=== PATIENT | male | born 1960 | race Caucasian/White ===

== ENCOUNTER 2017-12-12 10:54 | Emergency (ER) | payer MEDICARE ==
[~2017-12-12] VITALS: Ht 172.7 cm; Wt 69.5 kg
[~2017-12-12 10:54] MED LIST: ARIP10TA33; CITA10TA8 PO; CITA20TA9 PO; DIVA-61 PO; DIVA125T2 PO; TRAZ-136 PO; TRAZ300T2 PO
[2017-12-12 10:57] VITALS: BP 126/74
== END 2017-12-12 11:43 | disposition home or self-care (01) ==
LOC: ED 11:30
DX: H10.12 Acute atopic conjunctivitis, left eye (principal)
CPT/HCPCS: 99282

== ENCOUNTER 2018-09-26 12:35 | Emergency (ER) | payer MEDICARE ==
[~2018-09-26] VITALS: Ht 172.7 cm; Wt 71.2 kg
[~2018-09-26 12:35] MED LIST changes: -TRAZ-136 PO; +TRAZ50TA66 PO
[2018-09-26 12:47] VITALS: BP 121/74
--- NOTE | 2018-09-26 13:09 | NUR ---
LUNCH RN: PT PRESENTING TO ER FOR DEPRESSION AND SI, ATTEMPTS IN THE PAST BUT JUST WANTS SOME HELP. STATES HE WAS THINKING OF HANGING HIMSELF OR [place]. PT CURRENTLY CALM AND COOPERATIVE WITH STAFF REQUESTS. ROOM LOCKED DOWN AND SECURED, PT UNDRESSED COMPLETELY, GIVEN GOWN AND SOCKS. 1 BAG AND 1 ROLLING BAG OF BELONGINGS LABELED AND PLACED IN LOCKER. PT INFORMED OF NEEDED URINE SAMPLE, WATER GIVEN PER REQUEST. SITTER IN [place] FOR CONTINUOUS MONITORING.
[2018-09-26 13:31] LABS: BASOPHILS # (AUTO) 0.07 x10^3/uL (0-0.1); BASOPHILS % (AUTO) 1 % (0-1); EOSINOPHILS # (AUTO) 0.06 x10^3/uL (0-0.4); EOSINOPHILS % (AUTO) 1 % (1-7); LYMPHOCYTES # (AUTO) 1.99 x10^3/uL (1-3.4); LYMPHOCYTES % (AUTO) 30 % (22-44); MD NO; MEAN CORPUSCULAR HEMOGLOBIN 33.2 pg (27.5-34.5); MEAN CORPUSCULAR HGB CONC 33.9 g/dL (33.2-36.2); MEAN CORPUSCULAR VOLUME 97.7 fL (81-97); MEAN PLATELET VOLUME 7.8 fL (7.4-10.4); MONOCYTES # (AUTO) 0.42 x10^3/uL (0.2-0.8); MONOCYTES % (AUTO) 6 % (2-9); NEUTROPHILS # (AUTO) 4.14 x10^3/uL (1.8-6.8); NEUTROPHILS % (AUTO) 62 % (42-75); PLATELET COUNT 203 x10^3/uL (130-400); RED BLOOD COUNT 4.81 x10^6/uL (4.38-5.82)
[2018-09-26 13:44] LABS: ALANINE AMINOTRANSFERASE 19 U/L (12-78); ANION GAP 9 mmol/L (5-15); CALCIUM 9.5 mg/dL (8.5-10.1); CHLORIDE 105 mmol/L (98-107); CREATININE 0.92 mg/dL (0.7-1.3)
[2018-09-26 13:46] LABS: ALKALINE PHOSPHATASE 73 U/L (45-117); BILIRUBIN,TOTAL 1.3 mg/dL (0.2-1.0); TOTAL PROTEIN 7.7 g/dL (6.4-8.2)
[2018-09-26 13:49] LABS: ACETAMINOPHEN < 2 mcg/mL (10-30); SALICYLATE LEVEL < 1.7 mg/dL (2.8-20.0)
--- NOTE | 2018-09-26 14:44 | NUR ---
UA walked to lab, pt in bed, nad, no needs at this time, in suicide secured room, sitter at doorway in full view of pt. wctm
--- NOTE | 2018-09-26 14:54 | NUR ---
pt resting on gurney. provided with crackers and juice.
[2018-09-26 15:05] LABS: AMPHETAMINE SCREEN, URINE Negative (Negative); BARBITURATE SCREEN, URINE Negative (Negative); BENZODIAZEPINE SCREEN, URINE Negative (Negative); CANNABINOID SCREEN, URINE Negative (Negative); COCAINE SCREEN, URINE Positive (Negative); METHADONE SCREEN, URINE Negative (Negative); OPIATE SCREEN, URINE Negative (Negative)
--- NOTE | 2018-09-26 15:44 | NUR ---
pt resting on gurney. pt is calm and cooperative and states he is still having depressed feelings and reports low self esteem in himself. he is looking forward to being treated for his depression and SI and is hoping for a referral to a program that will help him create positive coping mechanisms.
[2018-09-26] MEDS ORDERED: TRAZ50TA66 PO (15:49)
--- NOTE | 2018-09-26 16:51 | NUR ---
REPORT GIVEN TO MANA GARLAND
[2018-09-26] MEDS ORDERED: BISACODYL 10 MG SUPP PR PRN (17:30)
[2018-09-26] MEDS ORDERED: DOCUSATE 100 MG CAPSULE PO PRN (17:30)
[2018-09-26] MEDS ORDERED: ACETAMINOPHEN 325 MG TABLET PO PRN (17:30)
[2018-09-26] MEDS ORDERED: POLYETHYLENE GLYCOL 17 GM PACKET PO PRN (18:00)
[2018-09-26] MEDS ORDERED: TRAZ-137 PO (20:04)
[2018-09-27] MEDS ORDERED: NICOTINE 14MG/24 HR PATCH.TD24 TD ONE (16:30)
[2018-09-27] MEDS ORDERED: LORazepam 1MG TABLET PO PRN (16:30)
[2018-09-28] MEDS ORDERED: THIAMINE 100MG TABLET PO SCH (09:00)
[2018-09-28] MEDS ORDERED: FOLIC ACID 1 MG TABLET PO SCH (09:00)
== END 2018-09-26 17:49 ==
LOC: ED 13:44
DX: F33.9 Major depressive disorder, recurrent, unspecified (principal); Z72.9 Problem related to lifestyle, unspecified; F14.10 Cocaine abuse, uncomplicated
CPT/HCPCS: 36415; 80053; 80307; 85025; 99285

== ENCOUNTER 2018-09-26 16:42 | Inpatient (IN) | payer MEDICARE ==
[~2018-09-26] VITALS: Ht 172.7 cm; Wt 72.8 kg
[2018-09-26] MEDS ORDERED: ACETAMINOPHEN 325 MG TABLET PO PRN (17:00)
[2018-09-26] MEDS ORDERED: DOCUSATE 100 MG CAPSULE PO PRN (17:00)
[2018-09-26] MEDS ORDERED: POLYETHYLENE GLYCOL 17 GM PACKET PO PRN (17:00)
[2018-09-26] MEDS ORDERED: BISACODYL 10 MG SUPP PR PRN (17:00)
[2018-09-26 18:33] VITALS: BP 132/81
[2018-09-26 19:03] LABS: BASOPHILS # (AUTO) 0.04 x10^3/uL (0-0.1); BASOPHILS % (AUTO) 1 % (0-1); EOSINOPHILS # (AUTO) 0.15 x10^3/uL (0-0.4); EOSINOPHILS % (AUTO) 2 % (1-7); LYMPHOCYTES # (AUTO) 2.92 x10^3/uL (1-3.4); LYMPHOCYTES % (AUTO) 41 % (22-44); MD NO; MEAN CORPUSCULAR HEMOGLOBIN 33.3 pg (27.5-34.5); MEAN CORPUSCULAR HGB CONC 33.3 g/dL (33.2-36.2); MEAN CORPUSCULAR VOLUME 99.9 fL (81-97); MEAN PLATELET VOLUME 8.1 fL (7.4-10.4); MONOCYTES # (AUTO) 0.48 x10^3/uL (0.2-0.8); MONOCYTES % (AUTO) 7 % (2-9); NEUTROPHILS # (AUTO) 3.51 x10^3/uL (1.8-6.8); NEUTROPHILS % (AUTO) 49 % (42-75); PLATELET COUNT 212 x10^3/uL (130-400); RED BLOOD COUNT 4.95 x10^6/uL (4.38-5.82); RED CELL DISTRIBUTION WIDTH 13.1 % (9.4-14.8)
[2018-09-26 19:12] LABS: ALBUMIN 3.9 g/dL (3.4-5.0); ANION GAP 6 mmol/L (5-15); CALCIUM 9.3 mg/dL (8.5-10.1); CHLORIDE 104 mmol/L (98-107)
[2018-09-26 19:27] VITALS: BP 132/86
[2018-09-26 19:40] LABS: ALANINE AMINOTRANSFERASE 19 U/L (12-78); ALKALINE PHOSPHATASE 72 U/L (45-117); BILIRUBIN,TOTAL 1.2 mg/dL (0.2-1.0); CHOL/HDL RATIO 2.1; CHOLESTEROL, TOTAL 145 mg/dL (140-239); CREATININE 0.89 mg/dL (0.7-1.3); HDL CHOL % 48 % (26-37); HDL CHOLESTEROL (DIRECT) 70 mg/dL (40-60); LDL CHOLESTEROL,CALCULATED 64 mg/dL (54-169); LDL/HDL RATIO 0.9 (0.5-3.0); T4 (THYROXINE) 6.6 mcg/dL (4.5-12.1); TOTAL PROTEIN 7.7 g/dL (6.4-8.2); TRIGLYCERIDES 53 mg/dL (50-200); VLDL CHOLESTEROL 11 mg/dL (0-25)
[2018-09-26 19:44] LABS: HCT (SEDRATE) 49.5 % (39.2-51.8)
[2018-09-26] MEDS ORDERED: TRAZ-137 PO (20:04)
[2018-09-26] MEDS: TRAZODONE 100MG TABLET PO SCH (20:32)
[2018-09-27 07:09] VITALS: BP 119/72
[2018-09-27] MEDS ORDERED: POLYETHYLENE GLYCOL 17 GM PACKET PO PRN (08:00)
[2018-09-27] MEDS ORDERED: ONDANSETRON ODT 4 MG PO PRN (08:00)
[2018-09-27] MEDS ORDERED: BISACODYL 10 MG SUPP PR PRN (08:00)
[2018-09-27] MEDS ORDERED: DOCUSATE 100 MG CAPSULE PO PRN (08:00)
[2018-09-27] MEDS: ACETAMINOPHEN 325 MG TABLET PO PRN (09:42)
[2018-09-27] MEDS ORDERED: NICOTINE 14MG/24 HR PATCH.TD24 TD ONE (17:00)
[2018-09-27 17:38] LABS: MICROSCOPIC NOT IND
[2018-09-27 18:12] LABS: CULTURE INDICATED? NO
[2018-09-27 19:49] VITALS: BP 114/72
[2018-09-27] MEDS: OLANZAPINE 5 MG TABLET PO SCH (20:56)
[2018-09-27] MEDS: TRAZODONE 100MG TABLET PO SCH (21:00)
[2018-09-27] MEDS: DIVALPROEX 500 MG TABLET.DR PO SCH (22:19)
[2018-09-28 07:31] VITALS: BP 117/71
[2018-09-28] MEDS ORDERED: NAPROXEN 500 MG TABLET ONE (08:24)
[2018-09-28] MEDS: FOLIC ACID 1 MG TABLET PO SCH (08:25)
[2018-09-28] MEDS: THIAMINE 100MG TABLET PO SCH (08:25)
[2018-09-28] MEDS: LORazepam 1MG TABLET PO PRN (08:26)
[2018-09-28] MEDS: NAPROXEN 500 MG TABLET PO PRN (08:29)
[2018-09-28 20:00] VITALS: BP 110/67
[2018-09-28] MEDS: OLANZAPINE 5 MG TABLET PO SCH (20:23)
[2018-09-28] MEDS: DIVALPROEX 500 MG TABLET.DR PO SCH (20:23)
[2018-09-28] MEDS: TRAZODONE 100MG TABLET PO SCH (20:23)
[2018-09-29 07:48] VITALS: BP 115/71
[2018-09-29] MEDS: NAPROXEN 500 MG TABLET PO PRN (08:28)
[2018-09-29] MEDS: THIAMINE 100MG TABLET PO SCH (08:28)
[2018-09-29] MEDS: LORazepam 1MG TABLET PO PRN (08:28)
[2018-09-29] MEDS: FOLIC ACID 1 MG TABLET PO SCH (08:28)
[2018-09-29 19:59] VITALS: BP 145/81
[2018-09-29] MEDS: OLANZAPINE 5 MG TABLET PO SCH (20:16)
[2018-09-29] MEDS: DIVALPROEX 500 MG TABLET.DR PO SCH (20:16)
[2018-09-29] MEDS: TRAZODONE 100MG TABLET PO SCH (20:16)
[2018-09-30 07:44] VITALS: BP 106/72
[2018-09-30] MEDS: THIAMINE 100MG TABLET PO SCH (08:42)
[2018-09-30] MEDS: FOLIC ACID 1 MG TABLET PO SCH (08:42)
[2018-09-30] MEDS: LORazepam 1MG TABLET PO PRN (13:22)
[2018-09-30 20:00] VITALS: BP 109/74
[2018-09-30] MEDS: DIVALPROEX 500 MG TABLET.DR PO SCH (20:30)
[2018-09-30] MEDS: TRAZODONE 100MG TABLET PO SCH (20:30)
[2018-09-30] MEDS: OLANZAPINE 5 MG TABLET PO SCH (20:31)
[2018-10-01 07:19] VITALS: BP 113/70
[2018-10-01] MEDS: FOLIC ACID 1 MG TABLET PO SCH (08:41)
[2018-10-01] MEDS: THIAMINE 100MG TABLET PO SCH (08:41)
[2018-10-01] MEDS: NAPROXEN 500 MG TABLET PO PRN (14:03)
[2018-10-01 19:30] VITALS: BP 120/72
[2018-10-01] MEDS: TRAZODONE 100MG TABLET PO SCH (20:20)
[2018-10-01] MEDS: OLANZAPINE 5 MG TABLET PO SCH (20:20)
[2018-10-01] MEDS: DIVALPROEX 500 MG TABLET.DR PO SCH (20:20)
[2018-10-02] MEDS: ACETAMINOPHEN 325 MG TABLET PO PRN (06:27)
[2018-10-02 07:25] VITALS: BP 106/69
[2018-10-02] MEDS: THIAMINE 100MG TABLET PO SCH (08:24)
[2018-10-02] MEDS: FOLIC ACID 1 MG TABLET PO SCH (08:24)
[2018-10-02 19:36] VITALS: BP 123/73
[2018-10-02] MEDS: TRAZODONE 100MG TABLET PO SCH (20:46)
[2018-10-02] MEDS: DIVALPROEX 500 MG TABLET.DR PO SCH (20:46)
[2018-10-02] MEDS: OLANZAPINE 5 MG TABLET PO SCH (20:46)
[2018-10-03 07:16] VITALS: BP 100/67
[2018-10-03] MEDS: THIAMINE 100MG TABLET PO SCH (08:41)
[2018-10-03] MEDS: LORazepam 1MG TABLET PO PRN (08:41)
[2018-10-03] MEDS: FOLIC ACID 1 MG TABLET PO SCH (08:41)
[2018-10-03 17:00] VITALS: BP 109/70
[2018-10-03 19:52] VITALS: BP 109/70
[2018-10-03] MEDS: OLANZAPINE 5 MG TABLET PO SCH (20:27)
[2018-10-03] MEDS: TRAZODONE 100MG TABLET PO SCH (20:27)
[2018-10-03] MEDS: DIVALPROEX 500 MG TABLET.DR PO SCH (20:27)
[2018-10-04 07:27] VITALS: BP 109/64
[2018-10-04] MEDS: THIAMINE 100MG TABLET PO SCH (08:46)
[2018-10-04] MEDS: FOLIC ACID 1 MG TABLET PO SCH (08:46)
[2018-10-04 15:46] VITALS: BP 106/70
[2018-10-04] MEDS: NAPROXEN 500 MG TABLET PO PRN (15:47)
[2018-10-04 19:46] VITALS: BP 107/68
[2018-10-04] MEDS: TRAZODONE 100MG TABLET PO SCH (20:53)
[2018-10-04] MEDS: DIVALPROEX 500 MG TABLET.DR PO SCH (20:53)
[2018-10-04] MEDS: OLANZAPINE 5 MG TABLET PO SCH (20:54)
[2018-10-05 07:31] VITALS: BP 98/63
[2018-10-05] MEDS: THIAMINE 100MG TABLET PO SCH (08:31)
[2018-10-05] MEDS: FOLIC ACID 1 MG TABLET PO SCH (08:31)
[2018-10-05 17:15] VITALS: BP 125/51
[2018-10-05 19:44] VITALS: BP 111/73
[2018-10-05] MEDS: OLANZAPINE 5 MG TABLET PO SCH (20:11)
[2018-10-05] MEDS: TRAZODONE 100MG TABLET PO SCH (20:11)
[2018-10-05] MEDS: DIVALPROEX 500 MG TABLET.DR PO SCH (20:11)
[2018-10-06 07:11] VITALS: BP 106/71
[2018-10-06] MEDS: THIAMINE 100MG TABLET PO SCH (09:04)
[2018-10-06] MEDS: FOLIC ACID 1 MG TABLET PO SCH (09:04)
[2018-10-06] MEDS ORDERED: LORazepam 0.5MG TABLET PO PRN (17:30)
[2018-10-06 19:51] VITALS: BP 104/73
[2018-10-06] MEDS: OLANZAPINE 5 MG TABLET PO SCH (20:18)
[2018-10-06] MEDS: DIVALPROEX 500 MG TABLET.DR PO SCH (20:18)
[2018-10-06] MEDS: TRAZODONE 100MG TABLET PO SCH (20:18)
[2018-10-07 06:56] VITALS: BP 106/71
[2018-10-07] MEDS: FOLIC ACID 1 MG TABLET PO SCH (10:05)
[2018-10-07] MEDS: THIAMINE 100MG TABLET PO SCH (10:05)
[2018-10-07] MEDS: NAPROXEN 500 MG TABLET PO PRN (15:54)
[2018-10-07 19:55] VITALS: BP 107/71
[2018-10-07] MEDS: OLANZAPINE 5 MG TABLET PO SCH (20:21)
[2018-10-07] MEDS: TRAZODONE 100MG TABLET PO SCH (20:21)
[2018-10-07] MEDS: DIVALPROEX 500 MG TABLET.DR PO SCH (20:21)
[2018-10-08 07:28] VITALS: BP 97/59
[2018-10-08] MEDS: THIAMINE 100MG TABLET PO SCH (08:03)
[2018-10-08] MEDS: FOLIC ACID 1 MG TABLET PO SCH (08:03)
[2018-10-08 19:53] VITALS: BP 113/75
[2018-10-08] MEDS: DIVALPROEX 500 MG TABLET.DR PO SCH (20:46)
[2018-10-08] MEDS: OLANZAPINE 5 MG TABLET PO SCH (20:46)
[2018-10-08] MEDS: TRAZODONE 100MG TABLET PO SCH (20:46)
[2018-10-09 07:21] VITALS: BP 102/61
[2018-10-09] MEDS: THIAMINE 100MG TABLET PO SCH (08:24)
[2018-10-09] MEDS: FOLIC ACID 1 MG TABLET PO SCH (08:24)
[2018-10-09] MEDS: NAPROXEN 500 MG TABLET PO PRN (11:32)
[2018-10-09 19:50] VITALS: BP 119/80
[2018-10-09] MEDS: OLANZAPINE 5 MG TABLET PO SCH (20:11)
[2018-10-09] MEDS: TRAZODONE 100MG TABLET PO SCH (20:11)
[2018-10-09] MEDS: DIVALPROEX 500 MG TABLET.DR PO SCH (20:11)
[2018-10-10 07:19] VITALS: BP 112/78
[2018-10-10] MEDS: FOLIC ACID 1 MG TABLET PO SCH (08:35)
[2018-10-10] MEDS: THIAMINE 100MG TABLET PO SCH (08:35)
[2018-10-10 19:55] VITALS: BP 125/78
[2018-10-10] MEDS: DIVALPROEX 500 MG TABLET.DR PO SCH (20:48)
[2018-10-10] MEDS: OLANZAPINE 5 MG TABLET PO SCH (20:49)
[2018-10-10] MEDS: TRAZODONE 100MG TABLET PO SCH (20:49)
[2018-10-11 07:27] VITALS: BP 107/67
[2018-10-11] MEDS: FOLIC ACID 1 MG TABLET PO SCH (08:28)
[2018-10-11] MEDS: THIAMINE 100MG TABLET PO SCH (08:28)
[2018-10-11 20:00] VITALS: BP 122/84
[2018-10-11] MEDS: TRAZODONE 100MG TABLET PO SCH (20:42)
[2018-10-11] MEDS: OLANZAPINE 5 MG TABLET PO SCH (20:43)
[2018-10-11] MEDS: DIVALPROEX 500 MG TABLET.DR PO SCH (20:43)
[2018-10-12 07:23] VITALS: BP 126/82
[2018-10-12] MEDS: FOLIC ACID 1 MG TABLET PO SCH (07:59)
[2018-10-12] MEDS: THIAMINE 100MG TABLET PO SCH (07:59)
== END 2018-10-12 08:30 | disposition home or self-care (01) | DRG 885 ==
LOC: 3E 17:52
PROVIDERS: ADMIT Psychiatry & Neurology Psychosomatic Medicine; ATTEND Psychiatry & Neurology Psychosomatic Medicine
DX: F31.30 Bipolar disorder, current episode depressed, mild or moderate severity, unspecified (principal); R45.851 Suicidal ideations; F17.200 Nicotine dependence, unspecified, uncomplicated; F41.9 Anxiety disorder, unspecified; G89.29 Other chronic pain; M54.9 Dorsalgia, unspecified; F10.10 Alcohol abuse, uncomplicated; Z81.8 Family history of other mental and behavioral disorders; Z80.1 Family history of malignant neoplasm of trachea, bronchus and lung; Z91.14 Patient's other noncompliance with medication regimen
CPT/HCPCS: 36415; 80053; 80061; 81003; 82140; 82607; 84436; 84443; 85025; 85651; 86592; 93005; Q0177

== ENCOUNTER 2018-11-06 09:43 | Emergency (ER) | payer MEDICARE ==
[~2018-11-06] VITALS: Ht 172.7 cm; Wt 75.5 kg
[~2018-11-06 09:43] MED LIST changes: +TRAZ-137 PO
[2018-11-06 09:45] VITALS: BP 130/75
[2018-11-06 10:06] LABS: BASOPHILS # (AUTO) 0.04 x10^3/uL (0-0.1); BASOPHILS % (AUTO) 1 % (0-1); EOSINOPHILS # (AUTO) 0.11 x10^3/uL (0-0.4); EOSINOPHILS % (AUTO) 2 % (1-7); LYMPHOCYTES # (AUTO) 1.91 x10^3/uL (1-3.4); LYMPHOCYTES % (AUTO) 40 % (22-44); MD NO; MEAN CORPUSCULAR HEMOGLOBIN 33.6 pg (27.5-34.5); MEAN CORPUSCULAR HGB CONC 33.8 g/dL (33.2-36.2); MEAN CORPUSCULAR VOLUME 99.6 fL (81-97); MEAN PLATELET VOLUME 7.8 fL (7.4-10.4); MONOCYTES # (AUTO) 0.37 x10^3/uL (0.2-0.8); MONOCYTES % (AUTO) 8 % (2-9); NEUTROPHILS # (AUTO) 2.39 x10^3/uL (1.8-6.8); NEUTROPHILS % (AUTO) 50 % (42-75); PLATELET COUNT 201 x10^3/uL (130-400); RED BLOOD COUNT 4.77 x10^6/uL (4.38-5.82); RED CELL DISTRIBUTION WIDTH 13.9 % (9.4-14.8)
[2018-11-06 10:17] LABS: ALBUMIN 4.5 g/dL (3.4-5.0); ANION GAP 5 mmol/L (5-15); CHLORIDE 106 mmol/L (98-107); SALICYLATE LEVEL 2.5 mg/dL (2.8-20.0)
--- NOTE | 2018-11-06 10:38 | NUR ---
LATE NOTE ENTRY FOR 0945: Pt presents to ED with c/o SI with plan to jump [place] bridge [place] free[place] traffic. Pt has history of SI. Pt resting on gurney with even chest rise and fall. Sitter near doorway in direct line of sight for observation. Room secured for SI/HI. Personal belongings removed and placed in one belonging bag that is locked in ED locker for safe keeping. No other needs expressed. Warm blanket provided for comfort measures.
--- NOTE | 2018-11-06 10:40 | NUR ---
Pt ambulates with steady gait and balance to restroom with sitter. Pt returned to ED room.
--- NOTE | 2018-11-06 11:01 | NUR ---
Provided report to MANA Gerardo. All questions answered. MANA Gerardo to assume care of pt.
--- NOTE | 2018-11-06 11:04 | NUR ---
REPORT RECEIVED FROM GUILHERME ADAIR. CARE TRANSFERRED AT THIS TIME.
[2018-11-06 11:12] LABS: AMPHETAMINE SCREEN, URINE Negative (Negative); BARBITURATE SCREEN, URINE Negative (Negative); BENZODIAZEPINE SCREEN, URINE Negative (Negative); CANNABINOID SCREEN, URINE Negative (Negative); COCAINE SCREEN, URINE Negative (Negative); METHADONE SCREEN, URINE Negative (Negative); OPIATE SCREEN, URINE Negative (Negative)
[2018-11-06] MEDS ORDERED: PROZAC (11:44)
[2018-11-06] MEDS ORDERED: ZYPREXA (11:44)
[2018-11-06] MEDS ORDERED: DEPAKOTE (11:44)
[2018-11-06] MEDS ORDERED: ZOLOFT (11:44)
[2018-11-06] MEDS ORDERED: LORazepam 1MG TABLET ONE (12:10)
--- NOTE | 2018-11-06 12:12 | NUR ---
PT GIVEN MEAL TRAY, EATING IN ROOM. PT BECOMING MORE ANXIOUS AND IRRITABLE WHEN ASKED QUESTIONS ABOUT MEDS. PT REQUESTING ATIVAN TO CALM DOWN. NOTIFIED, PT MEDICATED PER JUN. SITTER IN [place] FOR CONTINUOUS MONITORING. WILL CONTINUE TO MONITOR
[2018-11-06] MEDS ORDERED: LORazepam 1MG TABLET PO ONE (12:30)
--- NOTE | 2018-11-06 13:00 | NUR ---
PT ASLEEP IN [facility], MIGUELTER IN [facility] FOR CONTINUOUS MONITORING, [place]EL[place].
--- NOTE | 2018-11-06 13:20 | NUR ---
PACKET FAXED TO [facility], [facility], [facility]
--- NOTE | 2018-11-06 14:19 | NUR ---
PT RESTING IN [facility], NAD, SITTER IN [facility] FOR CONTINUOUS MONITORING.
--- NOTE | 2018-11-06 14:55 | NUR ---
REPORT GIVEN TO JIL AT [facility].
--- NOTE | 2018-11-06 15:14 | NUR ---
THIS RN NOTIFIED, PT WILL LEAVE ER VIA [facility] TO [facility]. PT RESTING IN [place].
--- NOTE | 2018-11-06 16:11 | NUR ---
PT AMBULATORY TO RESTROOM WITH STEADY GAIT. SITTER HAS LINE OF SIGHT TO PT FOR CONTINUOUS MONITORING.
--- NOTE | 2018-11-06 16:25 | NUR ---
PT LEFT WITH [facility]. REPORT GIVEN TO BOTH [facility] AND [facility]. ALL BELONGINGS AND DISCHARGE PAPERWORK GIVEN TO [facility]. PT AMBULATED TO AMBULANCE WITH STEADY GAIT AND [facility] STAFF, PT CALM AND COOPERATIVE.
== END 2018-11-06 16:29 ==
LOC: ED 12:46
DX: F33.2 Major depressive disorder, recurrent severe without psychotic features (principal); J45.909 Unspecified asthma, uncomplicated
CPT/HCPCS: 36415; 80048; 80307; 82040; 85025; 99285

== ENCOUNTER 2018-12-12 08:51 | Emergency (ER) | payer MEDICARE, OTHER ==
[~2018-12-12] VITALS: Ht 172.7 cm; Wt 71.0 kg
[2018-12-12 11:16] VITALS: BP 115/75
== END 2018-12-12 13:01 | disposition home or self-care (01) ==
LOC: ED 11:35
DX: S73.102A Unspecified sprain of left hip, initial encounter (principal); Y04.8XXA Assault by other bodily force, initial encounter; Y93.89 Activity, other specified; Y92.410 Unspecified street and highway as the place of occurrence of the external cause; Y99.8 Other external cause status
CPT/HCPCS: 36415; 71046; 72192; 73502; 73552; 80053; 81003; 84484; 85025; 93005; 96372; 99284; J1885

== ENCOUNTER 2019-05-17 12:07 | Emergency (ER) | payer MEDICARE ==
[~2019-05-17] VITALS: Ht 172.7 cm; Wt 71.8 kg
[~2019-05-17 12:07] MED LIST changes: +DEPAKOTE; +PROZAC; +ZOLOFT; +ZYPREXA
--- NOTE | 2019-05-17 12:18 | NUR ---
PHP ENGINEER: PT SITTING IN CHAIR NEAR NURSES STATION FOR MONITORING. TO BE ROOMED SHORTLY.
--- NOTE | 2019-05-17 12:48 | NUR ---
PT TO ROOM 3, ROOM SECURED.
[2019-05-17 12:59] LABS: BASOPHILS # (AUTO) 0.02 x10^3/uL (0-0.1); BASOPHILS % (AUTO) 0 % (0-1); EOSINOPHILS # (AUTO) 0.02 x10^3/uL (0-0.4); EOSINOPHILS % (AUTO) 0 % (1-7); LYMPHOCYTES # (AUTO) 1.65 x10^3/uL (1-3.4); LYMPHOCYTES % (AUTO) 36 % (22-44); MD NO; MEAN CORPUSCULAR HEMOGLOBIN 34.5 pg (27.5-34.5); MEAN CORPUSCULAR HGB CONC 34.6 g/dL (33.2-36.2); MEAN CORPUSCULAR VOLUME 99.8 fL (81-97); MEAN PLATELET VOLUME 7.6 fL (7.4-10.4); MONOCYTES # (AUTO) 0.43 x10^3/uL (0.2-0.8); MONOCYTES % (AUTO) 9 % (2-9); NEUTROPHILS # (AUTO) 2.47 x10^3/uL (1.8-6.8); NEUTROPHILS % (AUTO) 54 % (42-75); PLATELET COUNT 174 x10^3/uL (130-400); RED BLOOD COUNT 5.05 x10^6/uL (4.38-5.82); RED CELL DISTRIBUTION WIDTH 14.5 % (9.4-14.8)
[2019-05-17 13:11] LABS: ALBUMIN 4.2 g/dL (3.4-5.0); ANION GAP 5 mmol/L (5-15); CALCIUM 9.2 mg/dL (8.5-10.1); CHLORIDE 105 mmol/L (98-107)
[2019-05-17 13:14] LABS: ALANINE AMINOTRANSFERASE 568 U/L (12-78); ALKALINE PHOSPHATASE 131 U/L (45-117); BILIRUBIN,TOTAL 2.5 mg/dL (0.2-1.0); CREATININE 0.82 mg/dL (0.7-1.3); TOTAL PROTEIN 8.6 g/dL (6.4-8.2)
--- NOTE | 2019-05-17 13:15 | NUR ---
PT BELONGINGS PLACED IN TWO BELONGING BAGS AND INTO LOCKER. URINE COLLECTED/SENT TO LAB. SITTER AT DOORWAY FOR CLOSE OBS. PT UPDATED ON POC. PT VERBALIZES UNDERSTANDING, HAS BEEN HERE FOR SAME ONE YEAR AGO AND REMEMBERS POLICY. PT R/O ANXIETY ATTACKS WITHIN PAST THREE MONTHS, DEPRESSION AND STATES HE'S BEEN ISOLATING HIMSELF MORE. PT STATES HE STOPPED TAKING BIPOLAR AND DEPRESSION MEDS FOUR MONTHS AGO. CALL LIGHT WITHIN REACH TO ALLOW PT TO WATCH TV. PT COOPERATIVE WITH CARE. MEAL TRAY ORDERED.
[2019-05-17 13:18] LABS: SALICYLATE LEVEL < 1.7 mg/dL (2.8-20.0)
--- NOTE | 2019-05-17 13:45 | NUR ---
PT UPDATED ON ADD ON HEP PANEL LAB AND US. COMMUNITY NUTRITION EDUCATOR TO SEE.
[2019-05-17 13:51] LABS: MICROSCOPIC NOT IND
[2019-05-17 13:56] LABS: CULTURE INDICATED? NO
[2019-05-17 14:05] LABS: AMPHETAMINE SCREEN, URINE Negative (Negative); BARBITURATE SCREEN, URINE Negative (Negative); BENZODIAZEPINE SCREEN, URINE Negative (Negative); CANNABINOID SCREEN, URINE Negative (Negative); COCAINE SCREEN, URINE Negative (Negative); METHADONE SCREEN, URINE Negative (Negative); OPIATE SCREEN, URINE Negative (Negative)
--- NOTE | 2019-05-17 14:10 | NUR ---
US AT BS. MEAL TRAY TO BE PROVIDED FOLLOWING US.
--- NOTE | 2019-05-17 14:42 | NUR ---
TIRE CHANGER IN TO SEE PT.
[2019-05-17] MEDS: ARIPIPRAZOLE 10 MG TABLET PO SCH ×2 (15:30→18:10)
--- NOTE | 2019-05-17 15:50 | NUR ---
PT AMBULATORY TO BR WITH STEADY GAIT. SITTER AT DOORWAY.
[2019-05-17] MEDS ORDERED: ARIPIPRAZOLE 10 MG TABLET ONE (18:07)
--- NOTE | 2019-05-17 18:19 | NUR ---
MED GIVEN PER ORDER. MEAL TRAY PROVIDED.
--- NOTE | 2019-05-17 18:39 | NUR ---
THROUGHPUT: PT MEDICALLY CLEARED PER DR TURNER
--- NOTE | 2019-05-17 18:57 | NUR ---
report from stella alexander
--- NOTE | 2019-05-17 19:02 | NUR ---
REPORT TO STEPHANIE, TRANSFER OF CARE AT THIS TIME.
[2019-05-17] MEDS ORDERED: TRAZODONE 50MG TABLET ONE (20:18)
[2019-05-17 20:40] VITALS: BP 109/67
--- NOTE | 2019-05-17 20:40 | NUR ---
pt resting on gu[place]. pleasent and cooperative. VSS. pt medicated per emar. sitter at doorway for frequent checks.
[2019-05-17] MEDS ORDERED: TRAZODONE 100MG TABLET PO PRN (21:00)
--- NOTE | 2019-05-17 21:50 | NUR ---
PT RESTING IN BED, ROOM SECURE, SITTER AT BEDSIDE, NO COMPLAINTS AT THIS TIME
--- NOTE | 2019-05-17 23:43 | NUR ---
PT RESTING IN BED, ROOM SECURE, SITTER AT BEDSIDE, NO COMPLAINTS AT THIS TIME
--- NOTE | 2019-05-18 00:24 | NUR ---
PT RESTING IN BED, ROOM SECURE, SITTER AT BEDSIDE, NO COMPLAINTS AT THIS TIME
--- NOTE | 2019-05-18 01:40 | NUR ---
PT SLEEPING IN BED, ROOM SECURE, SITTER AT BEDSIDE, NO COMPLAINTS AT THIS TIME
--- NOTE | 2019-05-18 04:01 | NUR ---
PT SLEEPING IN BED, ROOM SECURE, SITTER AT BEDSIDE, NO COMPLAINTS AT THIS TIME
--- NOTE | 2019-05-18 05:02 | NUR ---
PT SLEEPING IN BED, ROOM SECURE, SITTER AT BEDSIDE, NO COMPLAINTS AT THIS TIME
--- NOTE | 2019-05-18 05:12 | NUR ---
REPORT FROM MANA BARNES. PT RESTING, NO NEEDS OR CONCERNS AT THIS TIME.
--- NOTE | 2019-05-18 06:59 | NUR ---
RECEIVED BEDSIDE REPORT FROM MANA YADAV. PER REPORT PT STATED HE WANTED TO JUMP OFF A BRIDGE.
--- NOTE | 2019-05-18 07:52 | NUR ---
PT SLEEPING ON HOSP BED, NADN. RESPS EQUAL AND UNLABORED. ALL SAFETY MEASURES OBTAINED. SITTER AT DOORWAY. PT WITHIN FULL VIEW. WILL CONTINUE TO MONITOR.
[2019-05-18] MEDS ORDERED: ARIPIPRAZOLE 10 MG TABLET ONE (08:29)
[2019-05-18] MEDS: ARIPIPRAZOLE 10 MG TABLET PO SCH (08:32)
--- NOTE | 2019-05-18 08:33 | NUR ---
DIET TRAY DELIVERED
--- NOTE | 2019-05-18 09:13 | NUR ---
PT CONTINUES TO REST ON HOSP BED. NADN. PT STATES HE DOESN'T HAVE A PLAN TO KILL HIMSELF LIKE HE DID YESTERDAY. NO NEEDS REQUESTED AT THIS TIME. ALL SAFETY MEASURES OBTAINED.
--- NOTE | 2019-05-18 09:41 | NUR ---
PACKET FAXED TO [facility] 234 BEDS AT THE [facility], [facility], BHAVYA MARIE, [facility] AND [facility]. CALLED [facility] TO SEE IF THEY WILL ACCEPT PT. STATED PT ONLY HAS PART A OF MEDICARE, THEY REQUIRE PART A & B.
--- NOTE | 2019-05-18 10:35 | NUR ---
SPOKE WITH JOHANNE FROM [facility]. PT IS ACCEPTED TO GO TO THEIR FACILITY. ACCEPTING DR IS DR. NJ.
--- NOTE | 2019-05-18 11:56 | NUR ---
PT RESTING ON GURNEY. PT VERBALIZED UNDERSTANDING REGARDING POC. NADN. NO OTHER NEEDS REQUESTED AT THIS TIME. ALL SAFETY MEASURES OBTAINED.
--- NOTE | 2019-05-18 12:04 | NUR ---
BEDSIDE REPORT TO [facility] ANTHON[facility] ADAIR.
--- NOTE | 2019-05-18 12:37 | NUR ---
BREAK RN: PT GIVEN TRAY, AWAITING [facility].
--- NOTE | 2019-05-18 12:57 | NUR ---
BEDSIDE REPORT TO [facility]. ALL QUESTIONS ANSWERED.
== END 2019-05-18 13:03 ==
LOC: ED 17:16
DX: F32.9 Major depressive disorder, single episode, unspecified (principal); F17.200 Nicotine dependence, unspecified, uncomplicated; B18.2 Chronic viral hepatitis C; J45.909 Unspecified asthma, uncomplicated
CPT/HCPCS: 36415; 76700; 80053; 80074; 80307; 81003; 85025; 87521; 93005; 99285

== ENCOUNTER 2020-06-17 11:03 | Emergency (ER) | payer MEDICAID, MEDICARE ==
[~2020-06-17] VITALS: Ht 172.7 cm; Wt 71.7 kg
[~2020-06-17 11:03] MED LIST changes: -TRAZ-137 PO; +TRAZ-175 PO
[2020-06-17 11:51] LABS: BASOPHILS % (AUTO) 1 % (0-1); EOSINOPHILS % (AUTO) 1 % (1-7); LYMPHOCYTES % (AUTO) 28 % (22-44); MD NO; MEAN CORPUSCULAR HEMOGLOBIN 35.1 pg (27.5-34.5); MEAN PLATELET VOLUME 7.5 fL (7.4-10.4); MONOCYTES % (AUTO) 8 % (2-9); NEUTROPHILS % (AUTO) 63 % (42-75); PLATELET COUNT 178 x10^3/uL (130-400); RED BLOOD COUNT 4.65 x10^6/uL (4.38-5.82); RED CELL DISTRIBUTION WIDTH 14.7 % (9.4-14.8)
[2020-06-17] MEDS ORDERED: LORazepam 1MG TABLET ONE (11:55)
[2020-06-17 11:59] LABS: ALBUMIN 4.4 g/dL (3.4-5.0); ANION GAP 5 mmol/L (5-15); CALCIUM 9.1 mg/dL (8.5-10.1); CHLORIDE 108 mmol/L (98-107)
[2020-06-17 12:00] LABS: AMPHETAMINE SCREEN, URINE Negative (Negative); BARBITURATE SCREEN, URINE Negative (Negative); BENZODIAZEPINE SCREEN, URINE Negative (Negative); CANNABINOID SCREEN, URINE Negative (Negative); COCAINE SCREEN, URINE Negative (Negative); METHADONE SCREEN, URINE Negative (Negative); OPIATE SCREEN, URINE Negative (Negative)
[2020-06-17] MEDS ORDERED: LORazepam 1MG TABLET PO PRN (12:00)
[2020-06-17 12:01] LABS: ALANINE AMINOTRANSFERASE 73 U/L (12-78); ALKALINE PHOSPHATASE 65 U/L (45-117); BILIRUBIN,TOTAL 1.5 mg/dL (0.2-1.0); CREATININE 0.78 mg/dL (0.7-1.3); SALICYLATE LEVEL 2.1 mg/dL (2.8-20.0); TOTAL PROTEIN 7.5 g/dL (6.4-8.2)
[2020-06-17 14:40] VITALS: BP 123/77
== END 2020-06-17 16:38 ==
LOC: ED 14:20
DX: R45.851 Suicidal ideations (principal); Z20.822 Contact with and (suspected) exposure to COVID-19; F10.229 Alcohol dependence with intoxication, unspecified; Y90.0 Blood alcohol level of less than 20 mg/100 ml
CPT/HCPCS: 36415; 80053; 80299; 80307; 80320; 80329; 85025; 87426; 99285; G0480

== ENCOUNTER 2020-06-17 14:41 | Inpatient (IN) | payer MEDICARE ==
[~2020-06-17] VITALS: Ht 172.7 cm; Wt 70.1 kg
[2020-06-17] MEDS ORDERED: BISACODYL 10 MG SUPP PR PRN (15:30)
[2020-06-17] MEDS ORDERED: ONDANSETRON ODT 4 MG PO PRN (15:30)
[2020-06-17] MEDS ORDERED: POLYETHYLENE GLYCOL 17 GM PACKET PO PRN (15:30)
[2020-06-17 15:31] VITALS: BP 113/79
[2020-06-17 15:53] LABS: MICROSCOPIC NOT IND
[2020-06-17] MEDS ORDERED: PLEASE ENTER HEIGHT AND WEIGHT MC SCH (17:00)
[2020-06-17] MEDS ORDERED: FLU VACC QS2020-21(6MOS UP)/PF 60MCG/0.5 ML SYR IM-VACC ONE (18:00)
[2020-06-17 19:20] VITALS: BP 113/68
[2020-06-17] MEDS: TRAZODONE 100MG TABLET PO SCH (20:45)
[2020-06-17] MEDS ORDERED: OLANZAPINE 10 MG TABLET PO SCH (21:00)
[2020-06-18 05:37] LABS: CHOL/HDL RATIO 2.6; FREE T4 (FREE THYROXINE) 0.8 ng/dL (0.76-1.46); LDL/HDL RATIO 1.2 (0.5-3.0)
[2020-06-18 07:31] VITALS: BP 116/75
[2020-06-18] MEDS: LEVOTHYROXINE 50 MCG TABLET PO SCH (08:11)
[2020-06-18] MEDS: THIAMINE 100MG TABLET PO SCH (08:52)
[2020-06-18] MEDS: LORazepam 1MG TABLET PO PRN (08:52)
[2020-06-18] MEDS: FOLIC ACID 1 MG TABLET PO SCH (08:52)
[2020-06-18] MEDS ORDERED: ACETAMINOPHEN 325 MG TABLET ONE (15:32)
[2020-06-18] MEDS: ACETAMINOPHEN 325 MG TABLET PO PRN (15:44)
[2020-06-18 19:31] VITALS: BP 103/65
[2020-06-18] MEDS: TRAZODONE 100MG TABLET PO SCH (20:22)
[2020-06-18] MEDS: OLANZAPINE 10 MG TABLET PO SCH (20:22)
[2020-06-18] MEDS ORDERED: DIVALPROEX 500 MG TABLET.DR PO SCH (21:00)
[2020-06-19] MEDS: LEVOTHYROXINE 50 MCG TABLET PO SCH (05:54)
[2020-06-19 07:42] VITALS: BP 102/62
[2020-06-19] MEDS: LORazepam 1MG TABLET PO PRN ×2 (08:17→13:51)
[2020-06-19] MEDS: THIAMINE 100MG TABLET PO SCH (08:17)
[2020-06-19] MEDS: FOLIC ACID 1 MG TABLET PO SCH (08:17)
[2020-06-19 19:50] VITALS: BP 110/71
[2020-06-19] MEDS: OLANZAPINE 10 MG TABLET PO SCH (19:55)
[2020-06-19] MEDS: DIVALPROEX 500 MG TABLET.DR PO SCH (19:56)
[2020-06-19] MEDS: TRAZODONE 100MG TABLET PO SCH (19:56)
[2020-06-20] MEDS: LEVOTHYROXINE 50 MCG TABLET PO SCH (05:57)
[2020-06-20 07:05] VITALS: BP 123/75
[2020-06-20] MEDS: HYDROXYZINE PAMOATE 50MG CAP PO PRN ×2 (08:32→14:11)
[2020-06-20] MEDS: FOLIC ACID 1 MG TABLET PO SCH (08:32)
[2020-06-20] MEDS: THIAMINE 100MG TABLET PO SCH (08:32)
[2020-06-20 19:15] VITALS: BP 112/72
[2020-06-20] MEDS: OLANZAPINE 10 MG TABLET PO SCH (22:05)
[2020-06-20] MEDS: DIVALPROEX 500 MG TABLET.DR PO SCH (22:05)
[2020-06-20] MEDS: TRAZODONE 100MG TABLET PO SCH (22:05)
[2020-06-21] MEDS: LEVOTHYROXINE 50 MCG TABLET PO SCH (06:08)
[2020-06-21 07:49] VITALS: BP 111/68
[2020-06-21] MEDS: THIAMINE 100MG TABLET PO SCH (08:23)
[2020-06-21] MEDS: FOLIC ACID 1 MG TABLET PO SCH (08:23)
[2020-06-21] MEDS: ARIPIPRAZOLE 10 MG TABLET PO SCH (08:24)
[2020-06-21] MEDS: HYDROXYZINE PAMOATE 50MG CAP PO PRN (08:53)
[2020-06-21 19:30] VITALS: BP 112/65
[2020-06-21] MEDS: DIVALPROEX 500 MG TABLET.DR PO SCH (20:38)
[2020-06-21] MEDS: TRAZODONE 100MG TABLET PO SCH (20:38)
[2020-06-21] MEDS: OLANZAPINE 10 MG TABLET PO SCH (20:38)
[2020-06-22] MEDS: LEVOTHYROXINE 50 MCG TABLET PO SCH (05:50)
[2020-06-22 07:05] VITALS: BP 110/72
[2020-06-22] MEDS: THIAMINE 100MG TABLET PO SCH (08:25)
[2020-06-22] MEDS: FOLIC ACID 1 MG TABLET PO SCH (08:25)
[2020-06-22] MEDS: ARIPIPRAZOLE 10 MG TABLET PO SCH (08:26)
[2020-06-22] MEDS: ACETAMINOPHEN 325 MG TABLET PO PRN (15:05)
[2020-06-22 19:30] VITALS: BP 123/75
[2020-06-22] MEDS: TRAZODONE 100MG TABLET PO SCH (20:09)
[2020-06-22] MEDS: DIVALPROEX 500 MG TABLET.DR PO SCH (20:10)
[2020-06-22] MEDS: OLANZAPINE 10 MG TABLET PO SCH (20:11)
[2020-06-23] MEDS: LEVOTHYROXINE 50 MCG TABLET PO SCH (05:40)
[2020-06-23 07:10] VITALS: BP 110/72
[2020-06-23] MEDS: ARIPIPRAZOLE 10 MG TABLET PO SCH (09:14)
[2020-06-23] MEDS: THIAMINE 100MG TABLET PO SCH (09:14)
[2020-06-23] MEDS: FOLIC ACID 1 MG TABLET PO SCH (09:14)
[2020-06-23] MEDS ORDERED: DIPHENHYDRAMINE 25 MG CAPSULE ONE (12:59)
[2020-06-23] MEDS ORDERED: DIPHENHYDRAMINE 25 MG CAPSULE PO PRN (13:00)
[2020-06-23 19:30] VITALS: BP 118/78
[2020-06-23] MEDS: DIVALPROEX 500 MG TABLET.DR PO SCH (20:05)
[2020-06-23] MEDS: TRAZODONE 100MG TABLET PO SCH (20:07)
[2020-06-23] MEDS: OLANZAPINE 10 MG TABLET PO SCH (20:07)
[2020-06-24] MEDS: LEVOTHYROXINE 50 MCG TABLET PO SCH (05:46)
[2020-06-24 07:23] VITALS: BP 100/69
[2020-06-24] MEDS: FOLIC ACID 1 MG TABLET PO SCH (08:55)
[2020-06-24] MEDS: ARIPIPRAZOLE 10 MG TABLET PO SCH (08:55)
[2020-06-24] MEDS: THIAMINE 100MG TABLET PO SCH (08:55)
[2020-06-24] MEDS: ACETAMINOPHEN 325 MG TABLET PO PRN (14:05)
[2020-06-24] MEDS ORDERED: TRAZ-175 PO (16:18)
[2020-06-24] MEDS ORDERED: OLAN10TA9 PO (16:18)
[2020-06-24] MEDS ORDERED: HYDR50CA2 PO (16:18)
[2020-06-24] MEDS ORDERED: LEVO50TA PO (16:18)
[2020-06-24] MEDS ORDERED: DIVA-61 PO (16:18)
[2020-06-24] MEDS ORDERED: ARIP10TA33 PO (16:18)
[2020-06-24 19:15] VITALS: BP 111/70
[2020-06-24] MEDS: OLANZAPINE 10 MG TABLET PO SCH (20:13)
[2020-06-24] MEDS: TRAZODONE 100MG TABLET PO SCH (20:13)
[2020-06-24] MEDS: DIVALPROEX 500 MG TABLET.DR PO SCH (20:13)
[2020-06-25] MEDS: LEVOTHYROXINE 50 MCG TABLET PO SCH (05:39)
[2020-06-25 07:36] VITALS: BP 121/74
[2020-06-25] MEDS: FOLIC ACID 1 MG TABLET PO SCH (08:44)
[2020-06-25] MEDS: THIAMINE 100MG TABLET PO SCH (08:44)
[2020-06-25] MEDS: ARIPIPRAZOLE 10 MG TABLET PO SCH (08:45)
== END 2020-06-25 09:59 | disposition home or self-care (01) | DRG 885 ==
LOC: 3E 16:33
PROVIDERS: ADMIT Psychiatry & Neurology Psychosomatic Medicine; ATTEND Psychiatry & Neurology Psychosomatic Medicine
DX: F31.30 Bipolar disorder, current episode depressed, mild or moderate severity, unspecified (principal); F10.20 Alcohol dependence, uncomplicated; E03.9 Hypothyroidism, unspecified; F15.10 Other stimulant abuse, uncomplicated; F17.210 Nicotine dependence, cigarettes, uncomplicated; G47.00 Insomnia, unspecified; F41.9 Anxiety disorder, unspecified; Z71.6 Tobacco abuse counseling; Z91.5 Personal history of self-harm; Z79.899 Other long term (current) drug therapy; Z80.1 Family history of malignant neoplasm of trachea, bronchus and lung
CPT/HCPCS: 36415; 71045; 80061; 81003; 82140; 84439; 84443; 90686; 93005; Q0163

== ENCOUNTER 2020-11-15 11:23 | Emergency (ER) | payer MEDICARE ==
[~2020-11-15] VITALS: Ht 172.7 cm; Wt 67.2 kg
[~2020-11-15 11:23] MED LIST changes: +ARIP10TA33 PO; +HYDR50CA2 PO; +LEVO50TA PO; +OLAN10TA69 PO
[2020-11-15 11:26] VITALS: BP 136/93
--- NOTE | 2020-11-15 11:43 | NUR ---
Belongings removed stored in locked cabinet, garage doors down, room secured, sitter in line of site. To have blood drawn and provide urine pt is calm and cooperative wtih POC.
[2020-11-15] MEDS ORDERED: LORazepam 1MG TABLET ONE (11:57)
[2020-11-15] MEDS ORDERED: LORazepam 1MG TABLET PO ONE (12:00)
--- NOTE | 2020-11-15 12:05 | NUR ---
Urine sent to lab, pt given ativan po per order. Pt calm, cooperative, in camera room, sitter in line of site. Will continue to monitor.
[2020-11-15 12:06] LABS: BASOPHILS % (AUTO) 1 % (0-1); EOSINOPHILS % (AUTO) 1 % (1-7); LYMPHOCYTES % (AUTO) 40 % (22-44); MEAN CORPUSCULAR HEMOGLOBIN 35.7 pg (27.5-34.5); MEAN CORPUSCULAR HGB CONC 35.4 g/dL (33.2-36.2); MEAN PLATELET VOLUME 8.3 fL (7.4-10.4); MONOCYTES % (AUTO) 10 % (2-9); NEUTROPHILS % (AUTO) 49 % (42-75); PLATELET COUNT 118 x10^3/uL (130-400); RED BLOOD COUNT 4.61 x10^6/uL (4.38-5.82)
[2020-11-15 12:06] LABS: MICROSCOPIC NOT IND
[2020-11-15 12:16] LABS: ALBUMIN 3.9 g/dL (3.4-5.0); ANION GAP 5 mmol/L (5-15); CHLORIDE 102 mmol/L (98-107)
[2020-11-15 12:20] LABS: ALANINE AMINOTRANSFERASE 81 U/L (12-78); ALKALINE PHOSPHATASE 71 U/L (45-117); BILIRUBIN,TOTAL 1.5 mg/dL (0.2-1.0); CREATININE 0.88 mg/dL (0.7-1.3); SALICYLATE LEVEL 2.3 mg/dL (2.8-20.0); TOTAL PROTEIN 8.1 g/dL (6.4-8.2)
[2020-11-15 12:22] LABS: AMPHETAMINE SCREEN, URINE Negative (Negative); BARBITURATE SCREEN, URINE Negative (Negative); BENZODIAZEPINE SCREEN, URINE Negative (Negative); CANNABINOID SCREEN, URINE Negative (Negative); COCAINE SCREEN, URINE Negative (Negative); METHADONE SCREEN, URINE Negative (Negative); OPIATE SCREEN, URINE Negative (Negative)
--- NOTE | 2020-11-15 13:46 | NUR ---
ASSUMING CARE OF PT AT THIS TIME.
--- NOTE | 2020-11-15 13:48 | NUR ---
PT REQUESTING TO MAKE PHONE, CALL. IN VIEW OF SITTER. HOSPITAL BED REQUESTED.
--- NOTE | 2020-11-15 15:03 | NUR ---
BREAK RN: PT SITTING UP IN HOSPITAL BED, NAD NOTED. SITTER AT DOORWAY WITH PT IN VIEW.
--- NOTE | 2020-11-15 15:06 | NUR ---
PACKET FAXED TO [facility], [facility]
--- NOTE | 2020-11-15 15:30 | NUR ---
PT PROVIDED W/ MEAL TRAY.
--- NOTE | 2020-11-15 15:32 | NUR ---
REPORT TO MALCOLM ADAIR AT [facility]. ACCEPTING MD ALONZO. PER MALCOLM CAN TAKE PT WHENEVER READY.
--- NOTE | 2020-11-15 15:59 | NUR ---
RESTING ON HOSPITAL BED W/ GARAGE DOORS DOWN X2 AND SITTER OUTSIDE ROOM FOR SAFETY. RESP EVEN AND UNLABORED, NADN. AWAITING TRANSPORT TO [facility].
--- NOTE | 2020-11-15 17:01 | NUR ---
PT UPDATED ON POC FOR [facility] TRANSFER, PT VISIBLY UPSET STATING "I THOUGHT I WAS GOING TO GO UPSTAIRS, I WANTED TO GO UPSTAIRS". PT EDUCATED ON ED PROCESS. PT REQUESTING TO MAKE PHONE CALL. PT AMBULATORY W/ A STEADY GAIT, IN VIEW OF SITTER.
--- NOTE | 2020-11-15 18:02 | NUR ---
PT PROVIDED W/ DINNER TRAY.
== END 2020-11-15 19:17 ==
LOC: ED 11:53
DX: F33.9 Major depressive disorder, recurrent, unspecified (principal); R45.851 Suicidal ideations; F17.200 Nicotine dependence, unspecified, uncomplicated
CPT/HCPCS: 36415; 80053; 80299; 80307; 80320; 80329; 81003; 85025; 99285; G0480